=== PATIENT | male | born 1935 | race Caucasian/White ===

== ENCOUNTER 2018-08-18 03:52 | Observation (INO) | payer OTHER ==
[~2018-08-18] VITALS: Ht 167.6 cm; Wt 65.1 kg
[2018-08-18 04:16] LABS: BASOPHILS ABSOLUTE AUTO 0.03 K/mm3 (0.00-0.23); BASOPHILS PERCENT AUTO 0 % (0-2); EOSINOPHILS ABSOLUTE AUTO 0.21 K/mm3 (0.00-0.68); EOSINOPHILS PERCENT AUTO 2 % (0-6); Hematocrit 42.3 % (37.0-53.0); Hemoglobin 13.9 g/dL (13.5-17.5); IMMATURE GRAN ABSOLUTE AUTO 0.07 K/mm3 (0.00-0.10); IMMATURE GRAN PERCENT AUTO 1 % (0-1); LYMPHOCYTES ABSOLUTE AUTO 1.37 K/mm3 (0.84-5.20); LYMPHOCYTES PERCENT AUTO 10 % (21-46); MONOCYTES ABSOLUTE AUTO 0.91 K/mm3 (0.16-1.47); MONOCYTES PERCENT AUTO 7 % (4-13); Mean Corpuscular HGB 30.4 pg (26.0-34.0); Mean Corpuscular HGB Conc 32.9 g/dL (31.5-36.5); Mean Corpuscular Volume 93 fL (80-100); Mean Platelet Volume 10.2 fL (9.1-12.4); NEUTROPHILS ABSOLUTE AUTO 10.73 K/mm3 (1.96-9.15); NEUTROPHILS PERCENT AUTO 81 % (41-73); Platelet Count 328 K/mm3 (150-400); RDW Coefficient Variation 14.3 % (11.7-14.2); RDW Standard Deviation 49.1 fL (35.1-46.3); Red Blood Cell Count 4.57 M/mm3 (4.30-5.90); White Blood Cell Count 13.32 K/mm3 (4.00-11.30)
[2018-08-18 04:42] LABS: Alanine Aminotransfer (ALT/SGP 13 U/L (12-78); Albumin, Blood 3.7 g/dL (3.4-5.0); Albumin/Globulin Ratio 0.9 (0.8-1.8); Alk Phos 84 U/L (50-136); Anion Gap 7 mmol/L (6-16); Aspartate Aminotrans (AST/SGOT 9 U/L (12-37); Bilirubin, Total 0.4 mg/dL (0.1-1.0); Blood Urea Nitrogen 10 mg/dL (8-24); Bun/Creatinine Ratio 11.7 (12.0-20.0); CO2, Blood 24 mmol/L (21-32); Calcium, Blood 8.8 mg/dL (8.5-10.1); Chloride, Blood 108 mmol/L (98-108); Creatinine, Blood 0.86 mg/dL (0.60-1.20); Glomerular Filtration Rate >60 (60-); Glucose, Blood 123 mg/dL (70-99); Sodium, Blood 139 mmol/L (136-145); Total Protein, Blood 7.7 g/dL (6.4-8.2); Troponin I <0.015 ng/mL (0.000-0.040)
[2018-08-18] MEDS ORDERED: Dazidox10 MG PO (04:44)
[2018-08-18] MEDS ORDERED: Citalopram HBr10 MG PO (04:45)
[2018-08-18] MEDS ORDERED: LISI5 PO (04:47)
[2018-08-18] MEDS ORDERED: OXYC10ER PO (06:16)
--- NOTE | 2018-08-18 07:12 | NUR ---
PT CHANGE OF SHIFT ADMIT. REPORT TAKEN FROM ER. PT IN ROOM, ADMISSION COMPLETE. MEDICATION GIVEN FOR HTN. PT A/OX4, STABLE WITHOUT S/S OF DISTRESS. PT REPORTS 2 (0-10) CHEST PAIN THAT IS DULL IN THE CENTER OF THE CHEST DOES NOT RADIATE. MUCH IMPROVED HE STATES IT WAS A 12 IN ER. NO N/V. SKIN WARM AND DRY. IV LEVAQUIN STARTED AND SOLUMEDROL GIVEN. FRIEND AT BEDSIDE. PT REQUESTS SOMETHING TO HELP HIM SLEEP AND RELAX. WILL CONTINUE TO MONITOR AND REPORT TO DAYSHIFT RN.
[2018-08-18 09:13] LABS: Source, Urine Clean Catch
[2018-08-18 09:22] LABS: Appearance, Urine Clear (Clear); Bilirubin, Urine Neg (Neg); Blood, Urine Neg (Neg); Color, Urine Yellow (P-Yellow); Glucose Qualitative, Urine Neg (Neg); Ketones, Urine Neg (Neg); Leukocyte Esterase, Urine Neg (Neg); Nitrite, Urine Neg (Neg); Protein, Urine Neg (Neg); Specific Gravity, Urine 1.005 (1.003-1.022); Urobilinogen, Urine NORM (Normal)
[2018-08-18 12:44] LABS: CPK Creatine Kinase 74 U/L (39-308); Troponin I <0.015 ng/mL (0.000-0.040)
[2018-08-18] MEDS ORDERED: ROPI.25 PO (14:03)
--- NOTE | 2018-08-18 17:08 | NUR ---
Mr. Ryan ("Harrison") is a self-proclaimed "cantankerous old fart." I met with his to discuss advanced care planing. He tells me that he wants "chest compressions" but no tube feeding, intubation, extraordinary measures. Three friends are at bedside. Harrison would like Reva to be his MPOA. This portion of the AD was completed. I made several copies for pt and friends. One copy placed in pt's chart. Harrison and his friends were grateful to have this conversation. I will remain available.
--- NOTE | 2018-08-18 19:13 | NUR ---
PREFERS TO BE CALLED CORK[facility]. UP INDEPENDENTLY. OXY GIVEN FOR CHRONIC KNEE PAIN. CALL LIGHT IN REACH
[2018-08-18 21:01] LABS: CPK Creatine Kinase 91 U/L (39-308); Troponin I <0.015 ng/mL (0.000-0.040)
[2018-08-19 05:18] LABS: Hematocrit 36.1 % (37.0-53.0); Hemoglobin 12.1 g/dL (13.5-17.5); Mean Corpuscular HGB 30.4 pg (26.0-34.0); Mean Corpuscular HGB Conc 33.5 g/dL (31.5-36.5); Mean Corpuscular Volume 91 fL (80-100); Mean Platelet Volume 10.7 fL (9.1-12.4); Platelet Count 285 K/mm3 (150-400); RDW Coefficient Variation 14.2 % (11.7-14.2); RDW Standard Deviation 47.6 fL (35.1-46.3); Red Blood Cell Count 3.98 M/mm3 (4.30-5.90); White Blood Cell Count 12.81 K/mm3 (4.00-11.30)
[2018-08-19 05:42] LABS: Alanine Aminotransfer (ALT/SGP 11 U/L (12-78); Albumin, Blood 3.1 g/dL (3.4-5.0); Albumin/Globulin Ratio 0.9 (0.8-1.8); Alk Phos 68 U/L (50-136); Anion Gap 7 mmol/L (6-16); Aspartate Aminotrans (AST/SGOT 8 U/L (12-37); Bilirubin, Total 0.4 mg/dL (0.1-1.0); Blood Urea Nitrogen 15 mg/dL (8-24); Bun/Creatinine Ratio 17.7 (12.0-20.0); CO2, Blood 25 mmol/L (21-32); Chloride, Blood 108 mmol/L (98-108); Creatinine, Blood 0.85 mg/dL (0.60-1.20); Globulin, Blood 3.6 g/dL (2.2-4.0); Glomerular Filtration Rate >60 (60-); Glucose, Blood 145 mg/dL (70-99); Potassium, Blood 4.4 mmol/L (3.5-5.5); Sodium, Blood 140 mmol/L (136-145); Total Protein, Blood 6.7 g/dL (6.4-8.2)
--- NOTE | 2018-08-19 07:33 | NUR ---
83 year old Male 2 pack per day smoker, smoking since age 9 refused nicotine patch and angry and irritable with staff when to not leave floor with tele unit to smoke. Neighbor who has been watching out for PT after his recently called and was supportive. PT has chronic pain . has rt le postpolio syndrome. able to ambulate with special cane but he goes downstairs against medical advice to smoke. PT says he took 3 oxycontin at HS on the night prior to admission. he also said he took some other pain meds. will put in social work referral to check on ability to manage own medications, assess support.
[2018-08-19] MEDS ORDERED: Percocet 10-321 EACH PO (16:51)
[2018-08-19] MEDS ORDERED: GABA300 PO (16:53)
--- NOTE | 2018-08-19 18:46 | NUR ---
SHIFT SUMMARY PT REPORTS TONGUE NO LONGER SWOLLEN BUT UPPER LIP FEELS SWOLLEN TODAY. DR. JENKINS AWARE. MEDICATED FOR PAIN X1 THIS SHIFT. PT C/O PAIN IN BILATERAL KNEES. NO COMPLAINTS OF CHEST PAIN OR SHORNTESS OF BREATH. PT INDEPENDENT AND AMBULATING IN HALLS OFTEN. THIS RN CALLED [facility] AND UPDATED PT'S MED REC PER WHAT THEY HAD ON FILE. PT IS UNABLE TO TELL WHAT MEDICATIONS HE TAKES EXCEPT HIS PAIN MEDICATIONS. PLANS FOR PT TO BE DISCHARGED HOME TOMORROW IF NO MORE SWELLING THROUGH OUT THE SHIFT.
--- NOTE | 2018-08-20 04:23 | NUR ---
83 YEAR OLD MALE 2 PACK PER DAY SMOKER X 60 PLUS YEARS ADMITTED AFTER HE STATES TOOK HIS PAIN MEDS DIFFERENTLY AND WENT TO BED. HE RECIEVES OXICONTIN 10 MG AT HS AND HAS OXYCODONE 10 MG AVAILABLE FOR PRN PAIN USE. HE ALSO TAKES REQUIP FOR RLS WITH HELPFUL EFFECT. [facility] AND SAYS HE HAS NO RUNNING WATER. HOPING TO GET HIS PLUMBING FIXED AFTER DISCHARGE. APPEARS TO LACK SOCIAL SUPPORT, HAS A NEIGHBOR THAT IS HELPFUL. SIGNIFICANT OTHER WHO HE LIVED WITH FOR 6 YEARS RECENTLY BUT THEY HAD BEEN SEPERATED FOR A PERIOD OF TIME. 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 MEDICATED WITH BENADRYL 25 MG FOR CO ITCHING WITH HELPFUL EFFECT. CO SOME GERD TYPE S/SX AND HAS PEPCID IV PUSH BID. NO AGRESSION NOTED BUT IMPATIENT AND HAS MULTIPLE REQUESTS.
[2018-08-20 05:22] LABS: Hematocrit 35.8 % (37.0-53.0); Hemoglobin 11.6 g/dL (13.5-17.5); Mean Corpuscular HGB 29.7 pg (26.0-34.0); Mean Corpuscular HGB Conc 32.4 g/dL (31.5-36.5); Mean Corpuscular Volume 92 fL (80-100); Mean Platelet Volume 10.8 fL (9.1-12.4); Platelet Count 286 K/mm3 (150-400); RDW Coefficient Variation 14.5 % (11.7-14.2); RDW Standard Deviation 48.8 fL (35.1-46.3); White Blood Cell Count 12.46 K/mm3 (4.00-11.30)
[2018-08-20 05:42] LABS: Anion Gap 7 mmol/L (6-16); Blood Urea Nitrogen 15 mg/dL (8-24); Bun/Creatinine Ratio 18.5 (12.0-20.0); CO2, Blood 26 mmol/L (21-32); Calcium, Blood 8.8 mg/dL (8.5-10.1); Chloride, Blood 107 mmol/L (98-108); Creatinine, Blood 0.81 mg/dL (0.60-1.20); Glomerular Filtration Rate >60 (60-); Glucose, Blood 117 mg/dL (70-99); Potassium, Blood 4.2 mmol/L (3.5-5.5); Sodium, Blood 140 mmol/L (136-145)
--- NOTE | 2018-08-20 10:40 | NUR ---
DR BESS ON PT PT STATES HE DOESNT FEEL WELL TODAY AND HIS STOMACH IS UPSET. DR REQUESTED I ADMINISTER MAALOX AND BEGIN BOWEL CARE. I DID ADMINISTER MAALOX. PT IS REFUSING BOWEL CARE AT THIS TIME. HE STATES HE DID HAVE A SMALL BOWEL MOVEMENT TODAY, WHICH HE STATES IS NORMAL FOR HIM. I WILL ATTEMPT TO ADDRESS THIS AGAIN TODAY WITH HIM. THE PT CALLED HIS NEIGHBOR REQUESTING HIS HOME MEDICATIONS BE BROUGHT IN. THE NEIGHBOR STATES SHE WILL BE HERE IN ONE HOUR.
--- NOTE | 2018-08-20 11:52 | NUR ---
HOME MEDICATIONS ARRIVED I WAS ABLE TO VERIFY DOSAGES CORRECT ON PT'S HOME MEDICATION LIST *EXCEPT* FOR LISINOPRIL. THAT PARTICULAR MEDICATION WAS NOT BROUGHT IN BY THE PT'S NEIGHBOR/FRIEND. I DO UNDERSTAND THAT THE LISINOPRIL WAS THE PARTICULAR HOME MEDICATION IN QUESTION AND THAT THE HOME MEDICATION LIST MUST REMAIN UNRECONCILED.
[2018-08-20] MEDS ORDERED: DOCU100 PO (15:42)
[2018-08-20] MEDS ORDERED: AMLO5 PO (15:42)
[2018-08-20] MEDS ORDERED: Melatonin5 M1 PO (15:43)
[2018-08-20] MEDS ORDERED: ASPERCREME1 EACH TOP (15:44)
--- NOTE | 2018-08-20 16:24 | NUR ---
DISCHARGE NOTE DC'D IV WNL. PROVIDED DISCHARGE INSTRUCTIONS VERBAL AND HARDCOPY. MEDICATIONS FAXED TO PREFERED PHARMACY. PT PUSHED OWN BELONGINGS OUT IN A WHEELCHAIR, UNWILLING TO WAIT FOR ESCORT. PT HAD NO FURTHER QUESTIONS
== END 2018-08-20 16:25 | disposition home or self-care (01) ==
LOC: ER 03:52 → MEDS 03:53
PROVIDERS: Emergency Medicine; Internal Medicine; ADMIT Internal Medicine
DX: T78.3XXA Angioneurotic edema, initial encounter (principal); R07.89 Other chest pain; J44.0 Chronic obstructive pulmonary disease with (acute) lower respiratory infection; J18.9 Pneumonia, unspecified organism; I10 Essential (primary) hypertension; F32.9 Major depressive disorder, single episode, unspecified; G25.81 Restless legs syndrome; G89.4 Chronic pain syndrome; I25.2 Old myocardial infarction; F17.210 Nicotine dependence, cigarettes, uncomplicated; Z86.73 Personal history of transient ischemic attack (TIA), and cerebral infarction without residual deficits; Z79.899 Other long term (current) drug therapy; Z79.82 Long term (current) use of aspirin; Z79.891 Long term (current) use of opiate analgesic
CPT/HCPCS: 36415; 71045; 80048; 80053; 81003; 82550; 83690; 84145; 84484; 85025; 85027; 87070; 87205; 93005; 93010; 96365; 96372; 96375; 96376; 99285-25; G0378; J0360; J0696; J1200; J1650; J1956; J2270; J2930; J3010; J7050; Q0163

== ENCOUNTER 2019-11-20 21:47 | Emergency (ER) | payer OTHER ==
[~2019-11-20] VITALS: Ht 162.6 cm; Wt 65.8 kg
[~2019-11-20 21:47] MED LIST: AMLO5 PO; ASPERCREME1 EACH TOP; Augmentin 875-1 EACH PO; Citalopram HBr10 MG PO; DOCU100 PO; Dazidox10 MG PO; GABA300 PO; LISI5 PO; Melatonin5 M1 PO; OXYC10ER PO; Percocet 10-321 EACH PO; ROPI.25 PO
== END 2019-11-20 23:35 | disposition home or self-care (01) ==
LOC: ER 21:47
DX: S61.012D Laceration without foreign body of left thumb without damage to nail, subsequent encounter (principal); J44.9 Chronic obstructive pulmonary disease, unspecified; I10 Essential (primary) hypertension; Z79.2 Long term (current) use of antibiotics; Z79.891 Long term (current) use of opiate analgesic; F17.200 Nicotine dependence, unspecified, uncomplicated
CPT/HCPCS: 99283

== ENCOUNTER → 2020-10-12 | Outpatient (CLI) | payer OTHER | END | disposition home or self-care (01) | LOC: PLD 15:40 → LAB SHORT 15:40 | DX: L72.0 Epidermal cyst (principal) | CPT/HCPCS: 88304 ==

== ENCOUNTER 2022-01-08 08:56 | Inpatient (IN) | payer OTHER ==
[~2022-01-08] VITALS: Ht 160 cm; Wt 61.2 kg
[2022-01-08 09:20] LABS: Calcium, Ionized (POC) 1.17 mmol/L (1.10-1.46); Chloride (POC) 101 mmol/L (98-108); Creatinine (POC) 0.9 mg/dL (0.8-1.3); Glucose (ISTAT POC) 172 mg/dL (70-99); Hemoglobin (POC) 15.3 g/dL (13.5-17.5); Potassium (POC) 5.6 mmol/L (3.5-5.5); Sodium (POC) 132 mmol/L (135-148); Total CO2 (POC) 24 mmol/L (21-32)
[2022-01-08 09:26] LABS: BASOPHILS PERCENT AUTO 1 % (0-2); EOSINOPHILS PERCENT AUTO 6 % (0-6); Hematocrit 42.8 % (37.0-53.0); Hemoglobin 14.1 g/dL (13.5-17.5); IMMATURE GRAN ABSOLUTE AUTO 0.04 K/mm3 (0.00-0.10); IMMATURE GRAN PERCENT AUTO 0 % (0-1); LYMPHOCYTES ABSOLUTE AUTO 3.81 K/mm3 (0.84-5.20); LYMPHOCYTES PERCENT AUTO 36 % (21-46); MONOCYTES ABSOLUTE AUTO 0.92 K/mm3 (0.16-1.47); MONOCYTES PERCENT AUTO 9 % (4-13); Mean Corpuscular HGB 29.6 pg (26.0-34.0); Mean Corpuscular HGB Conc 32.9 g/dL (31.5-36.5); Mean Corpuscular Volume 90 fL (80-100); Mean Platelet Volume 10.3 fL (9.1-12.4); NEUTROPHILS ABSOLUTE AUTO 5.27 K/mm3 (1.96-9.15); NEUTROPHILS PERCENT AUTO 49 % (41-73); Platelet Count 414 K/mm3 (150-400); RDW Coefficient Variation 14.3 % (11.7-14.2); RDW Standard Deviation 46.9 fL (35.1-46.3); Red Blood Cell Count 4.77 M/mm3 (4.30-5.90); White Blood Cell Count 10.74 K/mm3 (4.00-11.30)
[2022-01-08 09:28] LABS: Alanine Aminotransfer (ALT/SGP 14 U/L (12-78); Albumin, Blood 3.6 g/dL (3.4-5.0); Albumin/Globulin Ratio 0.8 (0.8-1.8); Alk Phos 100 U/L (50-136); Anion Gap 9 mmol/L (6-16); Aspartate Aminotrans (AST/SGOT 21 U/L (12-37); Bilirubin, Total 0.4 mg/dL (0.1-1.0); Blood Urea Nitrogen 21 mg/dL (8-24); Bun/Creatinine Ratio 23.5 (12.0-20.0); CHOL/HDL RATIO 3.3; CO2, Blood 20 mmol/L (21-32); Calcium, Blood 9.1 mg/dL (8.5-10.1); Chloride, Blood 102 mmol/L (98-108); Cholesterol 144 mg/dL (50-200); Globulin, Blood 4.4 g/dL (2.2-4.0); Glomerular Filtration Rate 84 (60-); Glucose, Blood 175 mg/dL (70-99); HDL Cholesterol 44 mg/dL (>39); LDL/HDL RATIO 1.6; Low Density Lipoprotein Chol 68 mg/dL (0-110); Potassium, Blood 4.7 mmol/L (3.5-5.5); Sodium, Blood 131 mmol/L (136-145); Triglycerides 158 mg/dL (30-160); Very Low Density Lipoprot Chol 31 mg/dL (6-32)
--- NOTE | 2022-01-08 10:32 | NUR ---
I respond to [facility] for [facility]. Assist with locating family to notify for TOD. No family immediately found. RN Loom Changer Aga uYng, will continue to locate family through other sources than face sheet, looking through belongings and pt's phone contacts.
--- NOTE | 2022-01-08 10:42 | NUR ---
CODE RESPONDED TO CODE IN CHIEF LEARNING OFFICER. ALL CODE NOTES ON CHIEF LEARNING OFFICER DOCUMENTATION. TOD 1017.
--- NOTE | 2022-01-08 14:45 | NUR ---
Multipul attempt to contact friend Reva Borja @ [phone]. Messages go to a voicmail that states full. unable to leave message to call hospital.
== END 2022-01-08 10:17 ==
LOC: ER 08:56 → ICUW 09:13
PROVIDERS: Emergency Medicine; ADMIT Internal Medicine Interventional Cardiology
PROC: 5A12012 Performance of Cardiac Output, Single, Manual (ICD-10-PCS; principal; 2022-01-08)
PROC: 0BH17EZ Insertion of Endotracheal Airway into Trachea, Via Natural or Artificial Opening (ICD-10-PCS; 2022-01-08)
DX: I21.02 ST elevation (STEMI) myocardial infarction involving left anterior descending coronary artery (principal); I10 Essential (primary) hypertension; I25.10 Atherosclerotic heart disease of native coronary artery without angina pectoris; R00.1 Bradycardia, unspecified; I46.2 Cardiac arrest due to underlying cardiac condition; F17.210 Nicotine dependence, cigarettes, uncomplicated; I25.2 Old myocardial infarction; Z86.73 Personal history of transient ischemic attack (TIA), and cerebral infarction without residual deficits; Z79.891 Long term (current) use of opiate analgesic; Z53.09 Procedure and treatment not carried out because of other contraindication
CPT/HCPCS: 71045; 76937; 80047; 80053; 80061; 84484; 85014; 85025; 86850; 86900; 86901; 92950; 93005; 93010; 93454; 96374; 96375; 96376; 99152; 99285-25; A9270; C1894; J0461; J1644; J1940; J2250; J2270; J2310; J2405; J3010; J7030